=== PATIENT | male | born 1990 | race Caucasian/White ===

== ENCOUNTER 2018-09-05 09:25 | Outpatient (CLI) | payer MEDICARE, MEDICAID ==
--- NOTE | 2018-09-05 11:18 | HP ---
DATE OF SERVICE: 09/05/2018 HISTORY OF PRESENT ILLNESS: Mr. Flavio Stock is a very pleasant 27-year-old [employer] accompanied by his mother who presents to the Wound Center for evaluation of a wound of the left buttock. The patient states that the ulceration has been present for approximately 9 weeks. The pat ient states that his medical history is significant for spinal muscular atrophy. He states that he n oted the presence of the ulceration while receiving a trial of Spinraza at [facility]. The patient st ates that he was seen by Dermatology and a steroid cream prescribed for the ulceration. When the [facility] eration fail to respond to the application of the steroid cream, the patient was seen by Dr. Waldrop and at this time referred to the Wound Center for further evaluation and treatment. The patient stat es that after being seen by Dr. Waldrop, the steroid cream was discontinued. The patient and his mot her state that the ulceration is presently being dressed with gauze and tape. PAST MEDICAL HISTORY: 1. Spinal muscular atrophy. 2. Osteoporosis. 3. Gastroesophageal reflux disease. 4. History of diverticulitis. PAST SURGICAL HISTORY: 1. Inguinal hernia repair. 2. Surgery for hiatal hernia. MEDICATIONS: 1. Augmentin. 2. Prilosec. ALLERGIES: No known diagnosed allergies. SOCIAL HISTORY: Negative for tobacco or ETOH use. FAMILY HISTORY: Significant for diabetes mellitus. The patient's mother and multiple relatives on t he maternal side of the patient's family were diagnosed with diabetes mellitus. Family history is al so significant for coronary artery disease. The patient's father and maternal uncle were both diagno sed with coronary artery disease. PHYSICAL EXAMINATION: VITAL SIGNS: Temperature 97.9, pulse 87, respirations 20, blood pressure 114/87. GENERAL: A 27-year-old gentleman lying on stretcher in examination room in no acute distress. HEENT: Normocephalic, atraumatic. NECK: No nuchal rigidity. CHEST: Clear to auscultation. CARDIOVASCULAR: Regular rate and rhythm. ABDOMEN: Soft. EXTREMITIES: No clubbing or cyanosis. BACK: A wound of the left buttock is present which measures approximately 0.8 x 1.0 cm. Granulation tissue is visible within the wound margins. Nonviable tissue present within the wound margins was d ebrided with an excisional full-thickness debridement with the use of a curette. No purulent drainag e is associated with the wound. No erythema of the skin surrounding the wound is present. No macera tion of the skin of the periwound is noted. ASSESSMENT AND PLAN: 1. Ulceration of left buttock as described above, possibly pressure ulceration. Dressing changes of Medihoney gauze and Mepilex border will be initiated today. These dressing changes are to be perfor med on a daily basis or alternatively every other day after cleansing and irrigation with the assista nce of Home Health. The patient is to continue Augmentin as previously prescribed. I will see Mr. Von cordova again in two weeks if the wound is still present at this time. 2. Spinal muscular atrophy. 3. Osteoporosis. 4. Gastroesophageal reflux disease. 5. History of diverticulitis.
[2018-09-05] MEDS ORDERED: Sodium Chloride 0.9% 15 ML NEB ONE (15:52)
[2018-09-05] MEDS ORDERED: Lidocaine 2% Jelly 30 GM TUBE ONE (15:52)
== END 2018-09-05 09:26 | disposition home or self-care (01) ==
LOC: WCC 09:25
PROVIDERS: ATTEND Family Medicine
DX: L98.419 Non-pressure chronic ulcer of buttock with unspecified severity (principal); G12.9 Spinal muscular atrophy, unspecified; M81.0 Age-related osteoporosis without current pathological fracture; K21.9 Gastro-esophageal reflux disease without esophagitis; Z98.890 Other specified postprocedural states; Z79.899 Other long term (current) drug therapy
CPT/HCPCS: 11042; 99203; A4218; G0463

== ENCOUNTER 2018-09-17 15:04 | Outpatient (CLI) | payer MEDICARE, MEDICAID ==
--- NOTE | 2018-09-17 17:00 | PRG ---
DATE OF SERVICE: 09/17/2018 HISTORY: Mr. Flavio Stock is a very pleasant 27-year-old [employer] accompanied by his mother who presents to the Wound Center for evaluation of a wound of the left buttock. At the time of the patient's initial presentation to the Wound Center, the patient stated that the ulcerati on had been present for approximately 9 weeks. The patient stated that his medical history is signif icant for spinal muscular atrophy. He stated that he noted the presence of the ulceration while rece iving a trial of SPINRAZA at [facility]. The patient stated that he was seen by Dermatology and a reece roid cream prescribed for the ulceration. When the ulceration fail to respond to the application of the steroid cream, the patient was seen by Dr. Waldrop and at this time referred to the Wound Center for further evaluation and treatment. The patient stated that after being seen by Dr. Waldrop, the s teroid cream was discontinued. At the time of the patient's initial presentation to the Wound Center , the patient and his mother stated that the ulceration was being dressed with gauze and tape. After being seen in the Wound Center, the patient was placed on dressing changes of Medihoney, gauze and M epilex border. PHYSICAL EXAMINATION: VITAL SIGNS: Temperature 97.9, pulse 102, respirations 17, blood pressure 115/76. BACK: A wound of the left buttock is present which measures approximately 0.8 x 0.6 cm. Granulation tissue is visible within the wound margins. Nonviable tissue present within the wound margins was d ebrided with an excisional full-thickness debridement. No purulent drainage is associated with the w ound. No erythema of the skin surrounding the wound is present. No maceration of the skin of the pe riwound is noted. ASSESSMENT AND PLAN: 1. Ulceration of left buttock as described above, possibly pressure ulceration. Dressing changes of Medihoney, gauze and Mepilex border will be continued after cleansing and irrigation. I will see Mr Bunny Stock again in two weeks if the wound is still present at this time. 2. Spinal muscular atrophy. 3. Osteoporosis. 4. Gastroesophageal reflux disease. 5. History of diverticulitis.
[2018-09-17] MEDS ORDERED: Sodium Chloride 0.9% 15 ML NEB ONE (20:00)
== END 2018-09-17 15:05 | disposition home or self-care (01) ==
LOC: WCC 15:04
PROVIDERS: ATTEND Family Medicine
DX: L98.419 Non-pressure chronic ulcer of buttock with unspecified severity (principal); G12.9 Spinal muscular atrophy, unspecified; M81.0 Age-related osteoporosis without current pathological fracture; K21.9 Gastro-esophageal reflux disease without esophagitis; Z87.19 Personal history of other diseases of the digestive system
CPT/HCPCS: 11042; A4218

== ENCOUNTER 2019-01-10 15:42 | Outpatient (CLI) | payer MEDICARE, MEDICAID ==
--- NOTE | 2019-01-10 17:20 | PRG ---
DATE OF SERVICE: 01/10/2019 HISTORY: Mr. Flavio Stock is a very pleasant 28-year-old, [employer] student, accompanied by his mother, who presents to the Wound Center for evaluation of a wound of the left buttock. The patient's medical history is significant for spinal muscular atrophy. The patient states that the wound healed completely after his list visit to the Wound Center, but recurred subsequently. The patient has no other complaints today. He denies any fever or chills. PHYSICAL EXAMINATION: VITAL SIGNS: Temperature 97.7, pulse 90, respirations 15, blood pressure 105/ 74. BACK: A full-thickness wound of the left buttock is present, which measures approximately 0.7 x 1.0 cm. Moderate serous drainage is associated with the wound. No erythema of the skin surrounding the wound is present. No maceration of the skin of the periwound is noted. ASSESSMENT AND PLAN: 1. Ulceration of left buttock as described above. Dressing changes of Medihoney followed by Mepilex border will be initiated today. These dressing changes are to be performed 3 times per week after cleansing and irrigation. Arrangements will be made for the home delivery of dressing supplies. I will see Mr. Stock again on an as-needed basis. The patient has been reassured that the wound is very superficial and has almost healed completely. 2. Spinal muscular atrophy. 3. Osteoporosis. 4. Gastroesophageal reflux disease. 5. History of diverticulitis. Job ID: [id number] MTDD
== END 2019-01-10 15:43 | disposition home or self-care (01) ==
LOC: WCC 15:42
PROVIDERS: ATTEND Family Medicine
DX: L98.419 Non-pressure chronic ulcer of buttock with unspecified severity (principal); M81.0 Age-related osteoporosis without current pathological fracture; K21.9 Gastro-esophageal reflux disease without esophagitis; G12.9 Spinal muscular atrophy, unspecified; Z87.19 Personal history of other diseases of the digestive system
CPT/HCPCS: 97602